=== PATIENT | female | born 1980 | race Asian ===

== ENCOUNTER 2016-11-05 06:30 | Inpatient (IN) | payer SELFPAY ==
[~2016-11-05] VITALS: Ht 162.6 cm; Wt 77.1 kg
[2016-11-05] MEDS ORDERED: LACTATED RINGERS 1,000 ML IV SCH (06:51)
[2016-11-05] MEDS ORDERED: PROMETHAZINE 25 MG/ML VIAL IVP PRN (06:55)
[2016-11-05] MEDS ORDERED: NALBUPHINE HYDROCHLORIDE 10 MG/ML VIAL IVP PRN (06:55)
[2016-11-05] MEDS ORDERED: OXYTOCIN 20 UNITS/LR PREMIX 1,000 ML IV PRN ×2 (06:55)
[2016-11-05] MEDS ORDERED: OXYTOCIN 10 UNITS/ML VIAL IM SCH (06:55)
[2016-11-05] MEDS ORDERED: CARBOPROST 250 MCG/ML AMP IM PRN (06:55)
[2016-11-05] MEDS ORDERED: METHYLERGONOVINE 0.2 MG/ML AMP IM PRN ×2 (06:55→18:20)
[2016-11-05 07:49] VITALS: BP 112/74
[2016-11-05] MEDS ORDERED: MISOPROSTOL 25 MCG TAB ONE (07:55)
[2016-11-05] MEDS ORDERED: MISOPROSTOL 25 MCG TAB PO PRN (08:00)
[2016-11-05] MEDS ORDERED: OXYTOCIN 20 UNITS/LR PREMIX 1,000 ML IV ONE (11:46)
[2016-11-05] MEDS ORDERED: ROPIVACAINE 0.2%/NS PREMIX 250 ML EPI ONE (13:19)
[2016-11-05] MEDS ORDERED: fentaNYL 0.05 MG/ML VIAL ONE (13:32)
[2016-11-05] MEDS ORDERED: OXYTOCIN 10 UNITS/ML VIAL ONE (16:45)
[2016-11-05] MEDS ORDERED: TEMAZEPAM 15 MG CAP PO PRN (18:20)
[2016-11-05] MEDS ORDERED: OXYTOCIN 10 UNITS/ML VIAL IM PRN (18:20)
[2016-11-05] MEDS ORDERED: MEASLES, MUMPS, AND RUBELLA 1 VIAL SQVAC PRN (18:20)
[2016-11-05] MEDS ORDERED: BENZOCAINE/MENTHOL 20%-0.5% 60 GM CAN TP PRN (18:20)
[2016-11-05] MEDS ORDERED: WITCH HAZEL 40 PAD PACKAGE TP PRN (18:20)
[2016-11-05] MEDS ORDERED: oxyCODONE/APAP 5/325 MG 1 TAB TAB PO PRN (18:20)
[2016-11-05] MEDS ORDERED: oxyCODONE/APAP 5/325 MG 1 TAB TAB ONE (19:04)
[2016-11-05] MEDS ORDERED: DOCUSATE SOD/SENNA 50/8.6 MG 1 TAB PO SCH (21:00)
[2016-11-05] MEDS ORDERED: BETHANECHOL 25 MG TAB PO PRN (22:45)
[2016-11-05] MEDS: IBUPROFEN 800 MG TAB PO PRN (22:50)
[2016-11-06] MEDS ORDERED: INFLUENZA VIRUS VACCINE QUAD 0.5 ML SYR IMVAC SCH (04:00)
[2016-11-06] MEDS: HYDROcodone/APAP 5/325 MG 1 TAB TAB PO PRN ×2 (04:14→15:17)
[2016-11-06] MEDS: IBUPROFEN 800 MG TAB PO PRN (21:00)
[2016-11-07] MEDS ORDERED: SODIUM PHOSPHATE 118 ML ENEM RC PRN (02:15)
[2016-11-07] MEDS: IBUPROFEN 800 MG TAB PO PRN ×3 (03:29→15:44)
== END 2016-11-07 17:15 | disposition home or self-care (01) | DRG 775 ==
LOC: MLD 06:30 → MFCC 21:00
PROVIDERS: ADMIT Obstetrics & Gynecology; ATTEND Obstetrics & Gynecology
PROC: 10E0XZZ Delivery of Products of Conception, External Approach (ICD-10-PCS; principal; 2016-11-05)
PROC: 3E033VJ Introduction of Other Hormone into Peripheral Vein, Percutaneous Approach (ICD-10-PCS; 2016-11-05)
PROC: 3E0S3CZ (ICD-10-PCS; 2016-11-05)
PROC: 00HU33Z Insertion of Infusion Device into Spinal Canal, Percutaneous Approach (ICD-10-PCS; 2016-11-05)
PROC: 3E0234Z Introduction of Serum, Toxoid and Vaccine into Muscle, Percutaneous Approach (ICD-10-PCS; 2016-11-06)
DX: O69.81X0 Labor and delivery complicated by cord around neck, without compression, not applicable or unspecified (principal); Z3A.39 39 weeks gestation of pregnancy; Z37.0 Single live birth; Z23 Encounter for immunization; O09.513 Supervision of elderly primigravida, third trimester